=== PATIENT | male | born 1985 | race African-American/Black ===

== ENCOUNTER 2019-02-10 10:11 | Emergency (ER) | payer MEDICAID ==
[~2019-02-10] VITALS: Ht 182.9 cm; Wt 100.0 kg
[2019-02-10] MEDS ORDERED: IBUPROFEN 600MG TABLET PO STA (12:58)
[2019-02-10 14:49] VITALS: BP 137/80
== END 2019-02-10 14:53 | disposition home or self-care (01) ==
LOC: ER 11:22
DX: S39.012A Strain of muscle, fascia and tendon of lower back, initial encounter (principal); S70.02XA Contusion of left hip, initial encounter; S70.12XA Contusion of left thigh, initial encounter; V69.49XA Driver of heavy transport vehicle injured in collision with other motor vehicles in traffic accident, initial encounter; Y93.89 Activity, other specified; Y92.410 Unspecified street and highway as the place of occurrence of the external cause
CPT/HCPCS: 72100; 73502; 99283